=== PATIENT | male | born 1980 | race Caucasian/White ===

== ENCOUNTER 2016-05-14 16:02 | Emergency (ER) | payer OTHER ==
[~2016-05-14] VITALS: Ht 175.3 cm; Wt 136.1 kg
[~2016-05-14 16:02] MED LIST: CIPR500T19; FLAG500T
[2016-05-14] MEDS ORDERED: CLEO300C2 PO (16:56)
[2016-05-14] MEDS ORDERED: CLINDAMYCIN 150 MG CAP PO ONE (17:15)
[2016-05-14 18:04] VITALS: BP 141/91
== END 2016-05-14 18:10 | disposition home or self-care (01) ==
LOC: M ED 17:12
DX: K04.7 Periapical abscess without sinus (principal); Z91.013 Allergy to seafood

== ENCOUNTER 2016-09-11 12:37 | Emergency (ER) | payer OTHER ==
[~2016-09-11] VITALS: Ht 175.3 cm; Wt 186.4 kg
[~2016-09-11 12:37] MED LIST changes: +CLEO300C2 PO
[2016-09-11] MEDS ORDERED: ONDANSETRON 4MG/2ML VIAL (J2405) IV ONE (13:30)
[2016-09-11] MEDS ORDERED: NS 500 ML IV ONE (13:30)
[2016-09-11 14:01] LABS: BASO # 0.1 K/mm3 (0.0-0.2); BASO % 0.9 % (0.0-1.0); EOS # 0.4 K/mm3 (0.0-0.50); EOS % 6.2 % (0.0-3.0); LARGE UNSTAINED CELL # 0.1 K/mm3 (0.0-0.4); LARGE UNSTAINED CELL % 1.6 % (0.0-4.0); LYMPH # 1.6 K/mm3 (1.5-4.5); LYMPH % 21.3 % (24.0-44.0); MEAN CORPUSCULAR HEMOGLOBIN 28.6 pg (27.0-33.0); MEAN CORPUSCULAR HGB CONC 33.8 g/dl (32.0-36.5); MEAN CORPUSCULAR VOLUME 84.6 fl (80.0-96.0); MONO # 0.5 K/mm3 (0.0-0.8); MONO % 6.3 % (0.0-5.0); NEUTROPHILS # 4.6 K/mm3 (1.8-7.7); NEUTROPHILS % 63.6 % (36.0-66.0); PLATELET COUNT, AUTOMATED 227 k/mm3 (150-450); RED CELL DISTRIBUTION WIDTH 14.2 % (11.5-14.5); WHITE BLOOD COUNT 7.2 K/mm3 (4.0-10.0)
[2016-09-11 14:22] LABS: ALBUMIN 3.3 GM/DL (3.2-5.2); ALBUMIN/GLOBULIN RATIO 0.85 (1.00-1.93); ALKALINE PHOSPHATASE 64 U/L (45-117); ALT/SGPT 58 U/L (12-78); ANION GAP 9 MEQ/L (8-16); AST/SGOT 32 U/L (15-37); BILIRUBIN,DIRECT 0.2 MG/DL (0.0-0.2); BILIRUBIN,TOTAL 0.9 MG/DL (0.2-1.0); BLOOD UREA NITROGEN 15 MG/DL (7-18); CALCIUM LEVEL 8.8 MG/DL (8.5-10.1); CARBON DIOXIDE LEVEL 26 MEQ/L (21-32); CHLORIDE LEVEL 105 MEQ/L (98-107); GLOMERULAR FILTRATION RATE > 60.0 (>60); GLUCOSE, FASTING 97 MG/DL (70-105); POTASSIUM SERUM 3.9 MEQ/L (3.5-5.1); SODIUM LEVEL 140 MEQ/L (136-145); TOTAL PROTEIN 7.2 GM/DL (6.4-8.2)
[2016-09-11] MEDS ORDERED: OMEP40CA2 PO (15:33)
[2016-09-11] MEDS ORDERED: ZOFR4TAB3 PO (15:34)
[2016-09-11 15:59] VITALS: BP 145/91
== END 2016-09-11 16:00 | disposition home or self-care (01) ==
LOC: M ED 12:37
DX: K21.9 Gastro-esophageal reflux disease without esophagitis (principal); Z90.49 Acquired absence of other specified parts of digestive tract
CPT/HCPCS: 80048; 80076; 81001; 83690; 85025; 87086; 96361; 96374; 99283; J2405

== ENCOUNTER 2017-11-07 07:24 | Inpatient (IN) | payer BC, OTHER, SELFPAY ==
[2017-11-07 08:42] LABS: BASO % 0.3 % (0.0-1.0); EOS # 0.4 10^3/uL (0.0-0.50); EOS % 2.8 % (0.0-3.0); HEMATOCRIT 39.7 % (42.0-52.0); HEMOGLOBIN 13.1 g/dl (13.5-17.5); IMMATURE GRANULOCYTE % 0.6 % (0-3.0); LYMPH # 2.1 10^3/uL (1.5-4.5); LYMPH % 16.1 % (24.0-44.0); MEAN CORPUSCULAR HEMOGLOBIN 27.8 pg (27.0-33.0); MEAN CORPUSCULAR VOLUME 84.3 fl (80.0-96.0); MONO # 1.2 10^3/uL (0.0-0.8); MONO % 9.1 % (0.0-5.0); NEUTROPHILS # 9.1 10^3/uL (1.8-7.7); NEUTROPHILS % 71.1 % (36.0-66.0); PLATELET COUNT, AUTOMATED 263 10^3/uL (150-450); RED BLOOD COUNT 4.71 10^6/uL (4.30-6.10); RED CELL DISTRIBUTION WIDTH 14.3 % (11.5-14.5); WHITE BLOOD COUNT 12.8 10^3/uL (4.0-10.0)
[2017-11-07 09:14] LABS: ANION GAP 8 MEQ/L (8-16); BLOOD UREA NITROGEN 19 MG/DL (7-18); CALCIUM LEVEL 8.8 MG/DL (8.5-10.1); CARBON DIOXIDE LEVEL 27 MEQ/L (21-32); CHLORIDE LEVEL 103 MEQ/L (98-107); CREATININE FOR GFR 1.12 MG/DL (0.70-1.30); GLOMERULAR FILTRATION RATE > 60.0 (>60); GLUCOSE, FASTING 118 MG/DL (70-100); POTASSIUM SERUM 4.1 MEQ/L (3.5-5.1); SODIUM LEVEL 138 MEQ/L (136-145)
[2017-11-07] MEDS: ceFAZolin SOD 1 GM in D5W MINI-BAG PLUS 50 ML IV (09:35)
[2017-11-07] MEDS ORDERED: ACETAMINOPHEN TAB 650MG DOSE (2X325MG) PO (11:00)
[2017-11-07] MEDS: VANCOMYCIN HCL 750 MG, VIAL MATE ADAPTER 1 EACH in D5W 250 ML IV (11:15)
[2017-11-07 11:28] LABS: ALBUMIN 3.6 GM/DL (3.2-5.2); ALBUMIN/GLOBULIN RATIO 0.82 (1.00-1.93); ALKALINE PHOSPHATASE 75 U/L (45-117); ALT/SGPT 27 U/L (12-78); AST/SGOT 14 U/L (7-37); BILIRUBIN,DIRECT 0.3 MG/DL (0.0-0.2); BILIRUBIN,TOTAL 1.1 MG/DL (0.2-1.0)
[2017-11-07] MEDS: PIPERACILLIN/TAZOBACTAM SOD 3.375 GM in D5W MINI-BAG PLUS 50 ML IV ×3 (11:49→23:06)
[2017-11-07] MEDS: VANCOMYCIN HCL 1,000 MG, VIAL MATE ADAPTER 1 EACH in D5W 250 ML IV ×3 (13:04→20:12)
[2017-11-07] MEDS: HEPARIN SOD (PORCINE) 5000 UNITS/ML VIAL SC ×2 (15:04→21:11)
[2017-11-07 16:54] LABS: LACTIC ACID SEPSIS PROTOCOL 1.3 MMOL/L (0.4-2.0)
[2017-11-08] MEDS: VANCOMYCIN HCL 1,000 MG, VIAL MATE ADAPTER 1 EACH in D5W 250 ML IV ×3 (04:42→22:04)
[2017-11-08] MEDS: HEPARIN SOD (PORCINE) 5000 UNITS/ML VIAL SC ×3 (05:55→22:04)
[2017-11-08 07:18] LABS: HEMATOCRIT 37.7 % (42.0-52.0); HEMOGLOBIN 12.3 g/dl (13.5-17.5); MEAN CORPUSCULAR HEMOGLOBIN 28.3 pg (27.0-33.0); MEAN CORPUSCULAR HGB CONC 32.6 g/dl (32.0-36.5); MEAN CORPUSCULAR VOLUME 86.9 fl (80.0-96.0); PLATELET COUNT, AUTOMATED 239 10^3/uL (150-450); RED BLOOD COUNT 4.34 10^6/uL (4.30-6.10); RED CELL DISTRIBUTION WIDTH 14.2 % (11.5-14.5); WHITE BLOOD COUNT 9.1 10^3/uL (4.0-10.0)
[2017-11-08 07:57] LABS: BLOOD UREA NITROGEN 14 MG/DL (7-18); CARBON DIOXIDE LEVEL 24 MEQ/L (21-32); CHLORIDE LEVEL 110 MEQ/L (98-107); CREATININE FOR GFR 0.81 MG/DL (0.70-1.30); GLOMERULAR FILTRATION RATE > 60.0 (>60); GLUCOSE, FASTING 91 MG/DL (70-100); POTASSIUM SERUM 3.7 MEQ/L (3.5-5.1); SODIUM LEVEL 143 MEQ/L (136-145)
[2017-11-08 07:58] LABS: ANION GAP 9 MEQ/L (8-16); CALCIUM LEVEL 7.8 MG/DL (8.5-10.1)
[2017-11-08] MEDS: PIPERACILLIN/TAZOBACTAM SOD 3.375 GM in D5W MINI-BAG PLUS 50 ML IV ×3 (09:18→18:19)
[2017-11-08 12:58] LABS: VANCOMYCIN LEVEL TROUGH 12.8 UG/ML (10.0-20.0)
[2017-11-09] MEDS: PIPERACILLIN/TAZOBACTAM SOD 3.375 GM in D5W MINI-BAG PLUS 50 ML IV ×3 (00:39→12:38)
[2017-11-09] MEDS: VANCOMYCIN HCL 1,000 MG, VIAL MATE ADAPTER 1 EACH in D5W 250 ML IV ×3 (04:34→20:13)
[2017-11-09] MEDS: HEPARIN SOD (PORCINE) 5000 UNITS/ML VIAL SC ×3 (06:02→20:13)
[2017-11-09 07:20] LABS: HEMATOCRIT 37.2 % (42.0-52.0); HEMOGLOBIN 12.2 g/dl (13.5-17.5); MEAN CORPUSCULAR HEMOGLOBIN 28.2 pg (27.0-33.0); MEAN CORPUSCULAR HGB CONC 32.8 g/dl (32.0-36.5); MEAN CORPUSCULAR VOLUME 85.9 fl (80.0-96.0); PLATELET COUNT, AUTOMATED 236 10^3/uL (150-450); RED BLOOD COUNT 4.33 10^6/uL (4.30-6.10); WHITE BLOOD COUNT 7.5 10^3/uL (4.0-10.0)
[2017-11-09 07:44] LABS: ANION GAP 6 MEQ/L (8-16); BLOOD UREA NITROGEN 13 MG/DL (7-18); C REACTIVE PROTEIN QUANTITATIV 8.57 MG/DL (0.00-0.30); CALCIUM LEVEL 8.7 MG/DL (8.5-10.1); CARBON DIOXIDE LEVEL 28 MEQ/L (21-32); CHLORIDE LEVEL 106 MEQ/L (98-107); CREATININE FOR GFR 1.02 MG/DL (0.70-1.30); GLOMERULAR FILTRATION RATE > 60.0 (>60); GLUCOSE, FASTING 108 MG/DL (70-100); POTASSIUM SERUM 3.9 MEQ/L (3.5-5.1); SODIUM LEVEL 140 MEQ/L (136-145)
[2017-11-09] MEDS: INFLUENZA QUADRIVALENT PF VACCINE 0.5ML SYRINGE (90686) IM (09:00)
[2017-11-09 12:36] LABS: VANCOMYCIN LEVEL TROUGH 13.6 UG/ML (10.0-20.0)
[2017-11-10] MEDS: VANCOMYCIN HCL 1,000 MG, VIAL MATE ADAPTER 1 EACH in D5W 250 ML IV ×2 (05:08→13:00)
[2017-11-10] MEDS: HEPARIN SOD (PORCINE) 5000 UNITS/ML VIAL SC (05:08)
[2017-11-10 06:59] LABS: HEMATOCRIT 38.3 % (42.0-52.0); HEMOGLOBIN 12.5 g/dl (13.5-17.5); MEAN CORPUSCULAR HEMOGLOBIN 28.2 pg (27.0-33.0); MEAN CORPUSCULAR HGB CONC 32.6 g/dl (32.0-36.5); MEAN CORPUSCULAR VOLUME 86.5 fl (80.0-96.0); PLATELET COUNT, AUTOMATED 263 10^3/uL (150-450); RED BLOOD COUNT 4.43 10^6/uL (4.30-6.10); WHITE BLOOD COUNT 7.9 10^3/uL (4.0-10.0)
[2017-11-10 07:12] LABS: ANION GAP 9 MEQ/L (8-16); BLOOD UREA NITROGEN 15 MG/DL (7-18); C REACTIVE PROTEIN QUANTITATIV 5.54 MG/DL (0.00-0.30); CALCIUM LEVEL 8.7 MG/DL (8.5-10.1); CARBON DIOXIDE LEVEL 26 MEQ/L (21-32); CHLORIDE LEVEL 106 MEQ/L (98-107); CREATININE FOR GFR 1.07 MG/DL (0.70-1.30); GLOMERULAR FILTRATION RATE > 60.0 (>60); GLUCOSE, FASTING 107 MG/DL (70-100); POTASSIUM SERUM 4.3 MEQ/L (3.5-5.1); SODIUM LEVEL 141 MEQ/L (136-145)
== END 2017-11-10 12:35 | disposition home or self-care (01) | DRG 383 ==
LOC: M ED 07:24 → M ED INP 10:26 → M MS5PR 12:40
DX: L03.115 Cellulitis of right lower limb (principal); Z68.44 Body mass index [BMI] 60.0-69.9, adult; E66.01 Morbid (severe) obesity due to excess calories; B95.62 Methicillin resistant Staphylococcus aureus infection as the cause of diseases classified elsewhere

== ENCOUNTER 2018-01-03 23:12 | Inpatient (IN) | payer BC ==
[2018-01-03] MEDS: ONDANSETRON 4MG/2ML VIAL (J2405) IV (23:45)
[2018-01-03] MEDS: NS 1,000 ML IV (23:45)
[2018-01-04 00:13] LABS: BEDSIDE GLUCOSE 139 MG/DL (70-105)
[2018-01-04 01:03] LABS: VENOUS BASE EXCESS -2.6 (-2.0-2.0); VENOUS HCO3 20.4 MEQ/L (23.0-27.0); VENOUS O2 SATURATION 93.9 % (60.0-80.0); VENOUS PARTIAL PRESSURE CO2 30.3 mmHg (38.0-50.0); VENOUS PH 7.445 UNITS (7.330-7.430); VENOUS STANDARD HCO3 22.2 MEQ/L; VENOUS TOTAL CO2 21.3 MEQ/L (24.0-28.0)
[2018-01-04 01:20] LABS: ACETONE/KETONE 18.64 MG/DL (<2.81); ALBUMIN 2.8 GM/DL (3.2-5.2); ALBUMIN/GLOBULIN RATIO 0.62 (1.00-1.93); ALKALINE PHOSPHATASE 59 U/L (45-117); ALT/SGPT 26 U/L (12-78); ANION GAP 12 MEQ/L (8-16); AST/SGOT 21 U/L (7-37); BILIRUBIN,DIRECT 0.5 MG/DL (0.0-0.2); BILIRUBIN,TOTAL 2.1 MG/DL (0.2-1.0); BLOOD UREA NITROGEN 20 MG/DL (7-18); CALCIUM LEVEL 7.8 MG/DL (8.5-10.1); CARBON DIOXIDE LEVEL 22 MEQ/L (21-32); CHLORIDE LEVEL 99 MEQ/L (98-107); CK-MB VALUE MASS < 1.0 NG/ML (<3.6); CPK CREATINE PHOSPHOKINASE 215 U/L (39-308); CREATININE FOR GFR 2.02 MG/DL (0.70-1.30); ESTIMATED AVERAGE GLUCOSE 123 MG/DL (60-110); GLOMERULAR FILTRATION RATE 39.8 (>60); GLUCOSE, FASTING 129 MG/DL (70-100); HEMOGLOBIN A1c 5.9 %; LIPASE 106 U/L (73-393); MAGNESIUM LEVEL 1.6 MG/DL (1.8-2.4); MB/CK RELATIVE INDEX 0.47 (< OR =4); PHOSPHORUS LEVEL 1.6 MG/DL (2.5-4.9); POTASSIUM SERUM 3.5 MEQ/L (3.5-5.1); SODIUM LEVEL 133 MEQ/L (136-145); TOTAL PROTEIN 7.3 GM/DL (6.4-8.2); TROPONIN I < 0.02 NG/ML (< 0.10)
[2018-01-04 01:20] LABS: LACTIC ACID SEPSIS PROTOCOL 1.4 MMOL/L (0.4-2.0)
[2018-01-04 01:31] LABS: INR 1.25; PROTHROMBIN TIME 15.9 SECONDS (12.1-14.4)
[2018-01-04 01:32] LABS: PARTIAL THROMBOPLASTIN TIME 28.8 SECONDS (25.4-37.6)
[2018-01-04 01:41] LABS: BASO % 0.2 % (0.0-1.0); HEMATOCRIT 37.8 % (42.0-52.0); HEMOGLOBIN 12.4 g/dl (13.5-17.5); IMMATURE GRANULOCYTE % 0.5 % (0-3.0); LYMPH # 0.7 10^3/uL (1.5-4.5); LYMPH % 5.1 % (24.0-44.0); MEAN CORPUSCULAR HEMOGLOBIN 27.9 pg (27.0-33.0); MEAN CORPUSCULAR HGB CONC 32.8 g/dl (32.0-36.5); MEAN CORPUSCULAR VOLUME 84.9 fl (80.0-96.0); MONO # 1.5 10^3/uL (0.0-0.8); MONO % 10.6 % (0.0-5.0); NEUTROPHILS # 11.7 10^3/uL (1.8-7.7); NEUTROPHILS % 83.6 % (36.0-66.0); PLATELET COUNT, AUTOMATED 165 10^3/uL (150-450); RED BLOOD COUNT 4.45 10^6/uL (4.30-6.10); RED CELL DISTRIBUTION WIDTH 14.1 % (11.5-14.5)
[2018-01-04 01:52] LABS: INFLUENZA A AMPLIFICATION NEGATIVE (NEGATIVE); INFLUENZA B AMPLIFICATION NEGATIVE (NEGATIVE)
[2018-01-04 01:55] LABS: OSMOLALITY SERUM 281 MOSM/KG (275-295)
[2018-01-04] MEDS: ACETAMINOPHEN 325 MG TAB PO (01:58)
[2018-01-04] MEDS ORDERED: BISACODYL 10 MG SUPP PR (02:30)
[2018-01-04] MEDS ORDERED: BISACODYL 5 MG TAB PO (02:30)
[2018-01-04] MEDS: PIPERACILLIN/TAZOBACTAM SOD 3.375 GM in D5W MINI-BAG PLUS 50 ML IV ×3 (02:48→17:34)
[2018-01-04] MEDS: NS 1,000 ML IV ×4 (02:49→17:35)
[2018-01-04 04:22] LABS: KETONE, URINE AUTO RFX 1+ mg/dL (NEGATIVE); LEUKOCYTE ESTERASE UR AUTO RFX 1+ (NEGATIVE); MUCUS, URINE RFX SMALL (NEGATIVE); NITRITE, URINE AUTO RFX POSITIVE (NEGATIVE); RBC, URINE AUTO RFX 11 /HPF (0-3); SPECIFIC GRAVITY UR AUTO RFX 1.016 (1.002-1.035); SQUAM EPITHELIAL CELL UR AURFX 1 /HPF (0-6); WBC, URINE AUTO RFX 69 /HPF (0-3)
[2018-01-04] MEDS: VANCOMYCIN HCL 1,000 MG, VIAL MATE ADAPTER 1 EACH in D5W 250 ML IV ×4 (04:25→16:16)
[2018-01-04 05:06] LABS: AMPHETAMINES LEVEL URINE NEGATIVE (NEGATIVE); BARBITURATES URINE NEGATIVE (NEGATIVE); BENZODIAZEPINES URINE NEGATIVE (NEGATIVE); CANNABINOIDS URINE NEGATIVE (NEGATIVE); COCAINE METABOLITE URINE NEGATIVE (NEGATIVE); METHADONE URINE NEGATIVE (NEGATIVE); OPIATES URINE NEGATIVE (NEGATIVE); PHENCYCLIDINE URINE NEGATIVE (NEGATIVE)
[2018-01-04] MEDS: HEPARIN SOD (PORCINE) 5000 UNITS/ML VIAL SC ×3 (06:36→22:42)
[2018-01-04] MEDS: ONDANSETRON 4MG/2ML VIAL (J2405) IV (08:04)
[2018-01-04] MEDS: ACETAMINOPHEN TAB 650MG DOSE (2X325MG) PO ×2 (08:04→22:42)
[2018-01-04] MEDS: IBUPROFEN 600 MG TAB PO (12:06)
[2018-01-05] MEDS: VANCOMYCIN HCL 1,000 MG, VIAL MATE ADAPTER 1 EACH in D5W 250 ML IV ×4 (00:56→23:37)
[2018-01-05] MEDS: PIPERACILLIN/TAZOBACTAM SOD 3.375 GM in D5W MINI-BAG PLUS 50 ML IV ×3 (02:30→17:58)
[2018-01-05] MEDS: NS 1,000 ML IV ×4 (02:31→16:36)
[2018-01-05] MEDS: ACETAMINOPHEN TAB 650MG DOSE (2X325MG) PO (06:34)
[2018-01-05] MEDS: HEPARIN SOD (PORCINE) 5000 UNITS/ML VIAL SC ×3 (06:34→20:52)
[2018-01-05 07:21] LABS: HEMATOCRIT 34.3 % (42.0-52.0); HEMOGLOBIN 11.5 g/dl (13.5-17.5); MEAN CORPUSCULAR HEMOGLOBIN 27.6 pg (27.0-33.0); MEAN CORPUSCULAR HGB CONC 33.5 g/dl (32.0-36.5); MEAN CORPUSCULAR VOLUME 82.5 fl (80.0-96.0); PLATELET COUNT, AUTOMATED 156 10^3/uL (150-450); RED BLOOD COUNT 4.16 10^6/uL (4.30-6.10); RED CELL DISTRIBUTION WIDTH 14.5 % (11.5-14.5); WHITE BLOOD COUNT 10.4 10^3/uL (4.0-10.0)
[2018-01-05 07:46] LABS: ANION GAP 9 MEQ/L (8-16); BLOOD UREA NITROGEN 18 MG/DL (7-18); CALCIUM LEVEL 7.6 MG/DL (8.5-10.1); CARBON DIOXIDE LEVEL 24 MEQ/L (21-32); CHLORIDE LEVEL 104 MEQ/L (98-107); CREATININE FOR GFR 1.74 MG/DL (0.70-1.30); GLOMERULAR FILTRATION RATE 47.2 (>60); GLUCOSE, FASTING 111 MG/DL (70-100); POTASSIUM SERUM 3.9 MEQ/L (3.5-5.1); SODIUM LEVEL 137 MEQ/L (136-145); VANCOMYCIN LEVEL TROUGH 16.4 UG/ML (10.0-20.0)
[2018-01-05] MEDS ORDERED: LOPERAMIDE 2 MG CAP PO (10:45)
[2018-01-05] MEDS: LACTOBACILLUS ACIDOPHILUS CAP (BACID) PO ×2 (12:46→17:58)
[2018-01-05] MEDS: MAG SULF 1GM/100ML (MAG RUN) 1 GM in APPROPRIATE DILUENT 1 EA IV (13:50)
[2018-01-05] MEDS: ONDANSETRON 4MG/2ML VIAL (J2405) IV (14:30)
[2018-01-05] MEDS: K-PHOS ORIGINAL (POT.ACID PHOSPHATE) 500MG TAB PO ×2 (14:30→20:52)
[2018-01-06] MEDS: PIPERACILLIN/TAZOBACTAM SOD 3.375 GM in D5W MINI-BAG PLUS 50 ML IV ×2 (01:46→11:03)
[2018-01-06] MEDS: NS 1,000 ML IV ×2 (05:09→10:16)
[2018-01-06] MEDS: HEPARIN SOD (PORCINE) 5000 UNITS/ML VIAL SC ×3 (05:09→21:55)
[2018-01-06 06:48] LABS: HEMATOCRIT 32.6 % (42.0-52.0); HEMOGLOBIN 10.6 g/dl (13.5-17.5); MEAN CORPUSCULAR HEMOGLOBIN 27.9 pg (27.0-33.0); MEAN CORPUSCULAR HGB CONC 32.5 g/dl (32.0-36.5); MEAN CORPUSCULAR VOLUME 85.8 fl (80.0-96.0); PLATELET COUNT, AUTOMATED 172 10^3/uL (150-450); RED CELL DISTRIBUTION WIDTH 14.9 % (11.5-14.5); WHITE BLOOD COUNT 8.9 10^3/uL (4.0-10.0)
[2018-01-06 07:08] LABS: ANION GAP 6 MEQ/L (8-16); BLOOD UREA NITROGEN 14 MG/DL (7-18); CALCIUM LEVEL 7.9 MG/DL (8.5-10.1); CARBON DIOXIDE LEVEL 27 MEQ/L (21-32); CHLORIDE LEVEL 105 MEQ/L (98-107); CREATININE FOR GFR 1.62 MG/DL (0.70-1.30); GLOMERULAR FILTRATION RATE 51.3 (>60); GLUCOSE, FASTING 118 MG/DL (70-100); SODIUM LEVEL 138 MEQ/L (136-145)
[2018-01-06] MEDS: LACTOBACILLUS ACIDOPHILUS CAP (BACID) PO ×2 (08:00→18:41)
[2018-01-06] MEDS: VANCOMYCIN HCL 1,000 MG, VIAL MATE ADAPTER 1 EACH in D5W 250 ML IV ×2 (08:16→16:48)
[2018-01-06] MEDS: K-PHOS ORIGINAL (POT.ACID PHOSPHATE) 500MG TAB PO (09:00)
[2018-01-06 15:24] LABS: VANCOMYCIN LEVEL TROUGH 16.6 UG/ML (10.0-20.0)
[2018-01-06] MEDS ORDERED: cefTRIAXone SOD 1 GM VIAL (J0696) IM (18:00)
[2018-01-06] MEDS: CEFDINIR 300 MG CAP (OMNICEF) PO (20:03)
[2018-01-07] MEDS: HEPARIN SOD (PORCINE) 5000 UNITS/ML VIAL SC (05:25)
[2018-01-07 06:37] LABS: HEMOGLOBIN 11.2 g/dl (13.5-17.5); MEAN CORPUSCULAR HEMOGLOBIN 27.9 pg (27.0-33.0); MEAN CORPUSCULAR HGB CONC 32.9 g/dl (32.0-36.5); MEAN CORPUSCULAR VOLUME 84.6 fl (80.0-96.0); PLATELET COUNT, AUTOMATED 230 10^3/uL (150-450); RED BLOOD COUNT 4.02 10^6/uL (4.30-6.10); WHITE BLOOD COUNT 9.3 10^3/uL (4.0-10.0)
[2018-01-07 07:01] LABS: ANION GAP 7 MEQ/L (8-16); BLOOD UREA NITROGEN 10 MG/DL (7-18); CALCIUM LEVEL 7.8 MG/DL (8.5-10.1); CARBON DIOXIDE LEVEL 27 MEQ/L (21-32); CHLORIDE LEVEL 104 MEQ/L (98-107); CREATININE FOR GFR 1.52 MG/DL (0.70-1.30); GLOMERULAR FILTRATION RATE 55.2 (>60); GLUCOSE, FASTING 112 MG/DL (70-100); POTASSIUM SERUM 3.7 MEQ/L (3.5-5.1); SODIUM LEVEL 138 MEQ/L (136-145)
[2018-01-07] MEDS: CEFDINIR 300 MG CAP (OMNICEF) PO (08:27)
[2018-01-07] MEDS: LACTOBACILLUS ACIDOPHILUS CAP (BACID) PO (08:27)
== END 2018-01-07 13:19 | disposition home or self-care (01) | DRG 720 ==
LOC: M ED 23:12 → M MSPAV 01-05 16:22 → M ED INP 01-04 02:16 → M ICU 01-04 15:37
DX: A41.9 Sepsis, unspecified organism (principal); N17.9 Acute kidney failure, unspecified; N13.2 Hydronephrosis with renal and ureteral calculous obstruction; E66.9 Obesity, unspecified; B96.20 Unspecified Escherichia coli [E. coli] as the cause of diseases classified elsewhere; Z86.14 Personal history of Methicillin resistant Staphylococcus aureus infection; E86.0 Dehydration; R19.7 Diarrhea, unspecified; Z91.030 Bee allergy status; Z90.49 Acquired absence of other specified parts of digestive tract

== ENCOUNTER → 2018-05-09 | Outpatient (CLI) | payer BC ==
[~2018-05-09] MED LIST changes: +CEFD300CAP PO; +DOXY-350 PO; +OMEP40CA2 PO; +RISATAB3 PO; +ZOFR4TAB14 PO
[2018-05-09 14:25] LABS: ALBUMIN 3.7 GM/DL (3.2-5.2); ALT/SGPT 39 U/L (12-78); BLOOD UREA NITROGEN 13 MG/DL (7-18); CARBON DIOXIDE LEVEL 28 MEQ/L (21-32); CHLORIDE LEVEL 107 MEQ/L (98-107); CHOLESTEROL LEVEL 144 MG/DL (<200); CREATININE FOR GFR 1.19 MG/DL (0.70-1.30); FREE T4 1.05 NG/DL (0.76-1.46); GLOMERULAR FILTRATION RATE > 60.0 (>60); GLUCOSE, FASTING 94 MG/DL (70-100); HDL CHOLESTEROL 40 MG/DL (>40); LDL CHOLESTEROL 78 MG/DL (<100); NON-HDL-C 104 MG/DL; POTASSIUM SERUM 4.5 MEQ/L (3.5-5.1); SODIUM LEVEL 141 MEQ/L (136-145); TOTAL PROTEIN 7.2 GM/DL (6.4-8.2); TRIGLYCERIDES LEVEL 132 MG/DL (<150)
== END ==
LOC: M LAB 13:11
PROVIDERS: ATTEND Family Medicine
DX: E66.01 Morbid (severe) obesity due to excess calories (principal)

== ENCOUNTER 2019-04-19 15:42 | Emergency (ER) | payer BC, SELFPAY ==
[~2019-04-19] VITALS: Ht 175.3 cm; Wt 145.4 kg
[~2019-04-19 15:42] MED LIST changes: -OMEP40CA2 PO; +OMEP40CA97 PO
[2019-04-19 15:43] VITALS: BP 137/95
[2019-04-19] MEDS ORDERED: DOXY100C37 PO (16:08)
== END 2019-04-19 16:12 | disposition home or self-care (01) ==
LOC: M ED 15:42
DX: L03.116 Cellulitis of left lower limb (principal); Z86.14 Personal history of Methicillin resistant Staphylococcus aureus infection; Z79.899 Other long term (current) drug therapy; Z91.018 Allergy to other foods

== ENCOUNTER 2019-09-13 18:13 | Inpatient (IN) | payer BC ==
[~2019-09-13 18:13] MED LIST changes: +DOXY100C37 PO
[2019-09-13] MEDS ORDERED: LIDOCAINE 2% W/EPINEPHRINE 20ML VIAL **PRES FREE As Ordered ONE (20:31)
[2019-09-14] MEDS ORDERED: VANCOMYCIN 1000MG/20ML VIAL As Ordered ONE (06:10)
--- NOTE | 2019-10-14 11:08 | CR ---
DATE: 09/14/2019 REASON FOR CONSULTATION: Left thigh abscess. 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 He thought that he had had some chaffing on his inner thigh from doing a lot of yard work lately; however, when he started to have increased swelling in the thigh and then it opened and drained spontaneously at home, he was concerned for cellulitis and he came into the hospital to have it evaluated. In the ER, his labs were normal; but he did have active drainage from the left thigh. The ER did an incision and drainage (I&D) of it as well and just showed it had some more serosanguineous drainage and they did not find any large purulent fluid collections. He was admitted to the hospitalist service for intravenous (IV) antibiotics and then I was called to evaluate. This morning, he denies any pain. No nausea or vomiting. No fevers. He has had these incisions before where the emergency room (ER) drained just clear fluid. He feels that the slightly has slightly improved from admission, but otherwise feels the same as when he came in. Labs this morning are still good. His white count was only 9.7 on admission and it is down to 8.05 this morning and again, no fevers and tolerating diet. PAST MEDICAL HISTORY: MRSA infections, obesity. PAST SURGICAL HISTORY: Sheron suarez. ALLERGIES: SHELL FISH. MEDICATIONS: Please see med rec. SOCIAL HISTORY: Denies drug, alcohol, or tobacco abuse. FAMILY HISTORY: Non-contributory. REVIEW OF SYSTEMS: Pertinent positives and negatives as stated in the HPI. PHYSICAL EXAMINATION: GENERAL: Alert and oriented (A&0) x3, in no acute distress. VITAL SIGNS: Stable. Afebrile. HEENT: Pupils equal, round, reactive to light and accommodation. HEART: S1, S2. Regular rate and rhythm. LUNGS: Clear to auscultation bilaterally. ABDOMEN: Soft, nondistended, obese, and nontender. EXTREMITIES: On the left proximal thigh there is a 5 x 8 cm area of erythema and induration with no fluctuance. There is an opening in the upper half of this area and about a 1 cm opening in the lower pole of this area both are just draining serosanguineous fluid. I was able to use a cotton tipped applicator and probe the wound myself and did not reveal any pockets of fluid that were missed during the I&D. His dressing was then changed. LABORATORY DATA: Again, white count on admission 9.7 down to 8.05 this morning, hemoglobin 13.1, platelets 261,000. ASSESSMENT AND PLAN: The patient is a 39-year-old male with history of methicillin-resistant Staphylococcus aureus (MRSA) infections who now presents with likely repeat MRSA infection to the left thigh. He was admitted with the diagnosis of sepsis; however, I find that hard to believe with normal labs and such a mild infection. I do believe he has just a regular mild MRSA infection of the left groin. I discussed the findings with the hospitalist this morning, Dr. Jaquez. Recommended that he be discharged home with just regular dressing changes and possibly Bactrim for 7-10 days. He understands and will evaluate him this morning and plan for discharge either today or tomorrow. Either way, there is no indication for any further surgical incisions at that point. SOTO
== END 2019-09-14 10:45 | disposition home or self-care (01) | DRG 383 ==
LOC: M ED 18:13 → M MSPAV 23:55
PROVIDERS: ADMIT Internal Medicine; ATTEND Internal Medicine
DX: L03.116 Cellulitis of left lower limb (principal); E66.9 Obesity, unspecified; Z91.013 Allergy to seafood

== ENCOUNTER → 2020-03-04 | Outpatient (CLI) | payer SELFPAY | LOC: M LABSMTC 14:03 | PROVIDERS: ATTEND Pediatrics | DX: Z20.822 Contact with and (suspected) exposure to COVID-19 (principal) ==

== ENCOUNTER 2020-03-28 15:56 | Emergency (ER) | payer BC ==
[~2020-03-28] VITALS: Ht 175.3 cm; Wt 205.0 kg
--- OUTSIDE RECORDS SUMMARY | 2020-03-28 16:06 | CCD ---
Author Author [facility] Organization [facility] Address Unknown Phone Unavailable Support Name Relationship Address Phone STAT Next Of Kin [address] [place] [address] UE Next Of Kin Unknown Unavailable CONVERGYS Next Of Kin [address] [place] [address] [employer] [address] [place] LAUREEN BOB Next Of Kin [address] [place] [address] LAUREEN BOB [address] [place] [id number] [phone] Re-disclosure Warning The records that you are about to access may contain information from federally-assisted alcohol or drug abuse programs. If such information is present, then the following federally mandated warning applies: This information has been disclosed to you from records protected by federal confidentiality rules (42 CFR part 2). The federal rules prohibit you from making any further disclosure of this information unless further disclosure is expressly permitted by the written consent of the person to whom it pertains or as otherwise permitted by 42 CFR part 2. A general authorization for the release of medical or other information is NOT sufficient for this purpose. The Federal rules restrict any use of the information to criminally investigate or prosecute any alcohol or drug abuse patient.The records that you are about to access may contain highly sensitive health information, the redisclosure of which is protected by Article 27-F of the [facility] Public Health law. If you continue you may have access to information: Regarding HIV / AIDS; Provided by facilities licensed or operated by the [facility] Office of Mental Health; or Provided by the [facility] Office for People With Developmental Disabilities. If such information is present, then the following [facility] mandated warning applies: This information has been disclosed to you from confidential records which are protected by state law. State law prohibits you from making any further disclosure of this information without the specific written consent of the person to whom it pertains, or as otherwise permitted by law. Any unauthorized further disclosure in violation of state law may result in a fine or senior care sentence or both. A general authorization for the release of medical or other information is NOT sufficient authorization for further disc losure. Family History Family Member Name Family Member Gender Family Member Status Date o f Status Description Data Source(s) Unknown Unknown Problem MEDENT ([facility]) Encounters Encounter Providers Location Date Indications Data Source(s ) [address] [address] 04/21/2019 12:00:00 AM EDT eCW1 ([facility]) Insurance Providers Payer name Policy type / Coverage type Policy ID Covered constitution party ID Covered constitution party's relationship to leroy Policy Leroy Plan Information [employer] [place] 306/806 [id number] SP [id number] SELF PAY ONLY [id number] SP [id number] [employer] BCBS B [id number] S [id number] [employer] BC-BS PPO 306 [id number] SP [id number] ANSI-Not a Secondary Insurance [id number] ANSI-Commercial [id number] ANSI-Commercial [id number] ANSI-Commercial [id number] ANSI-Commercial [id number] ANSI-Commercial [id number] ANSI-Commercial [id number] ANSI-Commercial [id number] [employer] [place] 306/806 [id number] SP [id number] [employer] [id number] SP [id number] [employer] Commercial [id number] Self [id number] SELF PAY UNAVAILABLE UNAVAILA BLE [employer] Commercial Self Results ID Date Data Source [id number] 03/04/2020 12:00:00 AM EST [facility] Name Value Range Interpretation Code Description Data Jessica rce(s) Supporting Document(s) SARS-CoV-2 (COVID-19) RNA [Presence] in Respiratory specimen by PALOMA with probe detection Not Detected [facility] This lab was ordered by [facility] and reported by [employer] Procedure
[2020-03-28] MEDS ORDERED: SULF1TAB93 (16:07)
--- OUTSIDE RECORDS SUMMARY | 2020-03-28 16:25 | CCD ---
Author Author [facility] Organization [facility] Address Unknown Phone Unavailable Support Name Relationship Address Phone STAT Next Of Kin [address] [place] [address] UE Next Of Kin Unknown Unavailable CONVERGYS Next Of Kin [address] [place] [address] [employer] [place] [address] [place] LAUREEN BOB Next Of Kin [address] [place] [address] LAUREEN BOB ECON [address] [place] [id number] [phone] Re-disclosure Warning The records that you are [...] is protected by Article 27-F of the [facility] Public Health law. If you continue you may have access to information: Regarding HIV / AIDS; Provided by facilities licensed or operated by the [facility] Office of Mental Health; or Provided by the [facility] Office for People With Developmental Disabilities. If such information is present, then the following [facility] mandated warning applies: This information has been [...] law may result in a fine or halfway sentence or both. A general authorization for the release of medical or other information is NOT sufficient authorization for further disc losure. Family History Family Member Name Family Member Gender Family Member Status Date o f Status Description Data Source(s) Unknown Unknown Problem MEDENT ([facility]) Encounters Encounter Providers Location Date Indications Data Source(s ) [address] [address] 04/21/2019 12:00:00 AM EDT eCW1 ([facility]) Insurance Providers Payer name Policy type / Coverage type Policy ID Covered constitution party ID Covered constitution party's relationship to leroy Policy Leroy Plan Information [employer] [place] 306/806 [id number] SP [id number] SELF PAY ONLY [id number] SP [id number] [employer] BCBS B [id number] S YND [id number] [employer]-BS PPO 306 [id number] SP [id number] ANSI-Not a Secondary Insurance [id number] ANSI-Commercial [id number] ANSI-Commercial [id number] ANSI-Commercial [id number] ANSI-Commercial [id number] ANSI-Commercial [id number] ANSI-Commercial [id number] ANSI-Commercial [id number] [employer] [place] 306/806 [id number] SP [id number] C[employer]NA [employer] [id number] SP [id number] [employer] Commercial [id number] Self [id number] SELF PAY UNAVAILABLE UNAVAILA BLE [employer] Self Results ID Date Data Source [id number] 03/04/2020 12:00:00 AM EST [facility] Name Value Range Interpretation Code Description Data Jessica rce(s) Supporting Document(s) SARS-CoV-2 (COVID-19) RNA [Presence] in Respiratory specimen by PALOMA with probe detection Not Detected [facility] This lab was ordered by [facility] and reported by [employer] Procedure
[2020-03-28] MEDS ORDERED: LIDOCAINE 1% MDV 20ML VIAL SC ONE (16:30)
[2020-03-28] MEDS ORDERED: CLEO300C2 PO (16:58)
[2020-03-28] MEDS ORDERED: ACETAMINOPHEN TAB 650MG DOSE (2X325MG) PO ONE (17:00)
[2020-03-28] MEDS ORDERED: IBUPROFEN 600MG TAB PO ONE (17:00)
[2020-03-28 17:03] VITALS: BP 160/90
== END 2020-03-28 17:00 | disposition home or self-care (01) ==
LOC: M ED 15:56
DX: L03.012 Cellulitis of left finger (principal); Z91.013 Allergy to seafood

== ENCOUNTER 2020-08-10 23:19 | Emergency (ER) | payer BC ==
[~2020-08-10] VITALS: Ht 175.3 cm; Wt 202.4 kg
[2020-08-10 23:19] VITALS: BP 172/92
[~2020-08-10 23:19] MED LIST changes: +BACTDSTA; -DOXY100C37 PO; +DOXY1CAP62 PO; +OMEP40CA4 PO; -OMEP40CA97 PO
[2020-08-11] MEDS ORDERED: CLEO300C2 PO (04:22)
[2020-08-11] MEDS ORDERED: CLINDAMYCIN 150MG CAPSULE PO ONE (04:25)
== END 2020-08-11 05:16 | disposition home or self-care (01) ==
LOC: M ED 23:19
DX: L03.317 Cellulitis of buttock (principal); Z86.14 Personal history of Methicillin resistant Staphylococcus aureus infection; Z91.013 Allergy to seafood

== ENCOUNTER 2021-07-29 18:42 | Emergency (ER) | payer BC, SELFPAY ==
[~2021-07-29] VITALS: Ht 175.3 cm; Wt 197.2 kg
[~2021-07-29 18:42] MED LIST changes: +DOXY-443 PO; -DOXY1CAP62 PO
[2021-07-29] MEDS ORDERED: cefTRIAXone SOD 2 GM VIAL (J0696 PER 250MG) IM ONE (23:35)
[2021-07-29] MEDS ORDERED: LIDOCAINE 1% SDV 5ML VIAL DILUENT ONE (23:35)
[2021-07-29] MEDS ORDERED: DOXY-443 PO (23:35)
[2021-07-29 23:42] VITALS: BP 160/82
== END 2021-07-29 23:43 | disposition home or self-care (01) ==
LOC: M ED 18:42
DX: L02.31 Cutaneous abscess of buttock (principal); Z86.14 Personal history of Methicillin resistant Staphylococcus aureus infection; Z91.013 Allergy to seafood
CPT/HCPCS: 96372; 99283; J0696

== ENCOUNTER 2021-12-24 23:05 | Emergency (ER) | payer SELFPAY ==
[~2021-12-24] VITALS: Ht 175.3 cm; Wt 196.8 kg
[~2021-12-24 23:05] MED LIST changes: -DOXY-350 PO; +DOXY-444 PO
[2021-12-25] MEDS ORDERED: NS 1,000 ML IV ONE ×2 (00:05→00:40)
[2021-12-25] MEDS ORDERED: KETOROLAC 30 MG/ML 1ML VIAL IV ONE (00:05)
[2021-12-25 00:15] LABS: BASO % 0.4 % (0.0-1.0); EOS # 0.2 10^3/uL (0.0-0.5); EOS % 1.7 % (0.0-3.0); HEMATOCRIT 43.3 % (42.0-52.0); HEMOGLOBIN 13.7 g/dl (13.5-17.5); LYMPH # 1.2 10^3/uL (1.5-5.0); LYMPH % 11.3 % (24.0-44.0); MEAN CORPUSCULAR HEMOGLOBIN 28.2 pg (27.0-33.0); MEAN CORPUSCULAR HGB CONC 31.6 g/dl (32.0-36.5); MEAN CORPUSCULAR VOLUME 89.3 fl (80.0-96.0); MONO # 0.5 10^3/uL (0.0-0.8); MONO % 4.9 % (2.0-8.0); NEUTROPHILS # 8.5 10^3/uL (1.5-8.5); NEUTROPHILS % 81.2 % (36.0-66.0); PLATELET COUNT, AUTOMATED 248 10^3/uL (150-450); RED BLOOD COUNT 4.85 10^6/uL (4.30-6.10); WHITE BLOOD COUNT 10.5 10^3/uL (4.0-10.0)
[2021-12-25 00:27] LABS: ALBUMIN 3.7 GM/DL (3.2-5.2); BILIRUBIN,DIRECT 0.2 MG/DL (0.0-0.2); BILIRUBIN,TOTAL 0.9 MG/DL (0.2-1.0); CALCIUM LEVEL 8.5 MG/DL (8.5-10.1); CREATININE FOR GFR 1.51 MG/DL (0.70-1.30); GLOMERULAR FILTRATION RATE 54.5 (>60); POTASSIUM SERUM 4.1 MEQ/L (3.5-5.1); TOTAL PROTEIN 7.7 GM/DL (6.4-8.2)
[2021-12-25 00:46] LABS: RSV AMPLIFICATION NEGATIVE (NEGATIVE)
[2021-12-25 02:51] VITALS: BP 140/80
== END 2021-12-25 03:10 | disposition home or self-care (01) ==
LOC: M ED 23:05
DX: U07.1 COVID-19 (principal); N17.9 Acute kidney failure, unspecified; K76.0 Fatty (change of) liver, not elsewhere classified; N20.0 Calculus of kidney; K44.9 Diaphragmatic hernia without obstruction or gangrene; R11.2 Nausea with vomiting, unspecified; Z87.19 Personal history of other diseases of the digestive system; F17.200 Nicotine dependence, unspecified, uncomplicated; Z91.013 Allergy to seafood
CPT/HCPCS: 71046; 74176; 80048; 80076; 81000; 81015; 83690; 85025; 87088; 87186; 87631; 93005; 93041; 94760; 96361; 96374; 99285; J1885

== ENCOUNTER 2022-04-02 00:43 | Emergency (ER) | payer MEDICAID, SELFPAY ==
[~2022-04-02] VITALS: Ht 175.3 cm; Wt 203.0 kg
[~2022-04-02 00:43] MED LIST changes: +CIPR-249 PO
[2022-04-02] MEDS ORDERED: DALBAVANCIN 1,500 MG in D5W 250 ML IV ONE (02:35)
[2022-04-02 03:18] LABS: BASO # 0.1 10^3/uL (0.0-0.2); BASO % 0.5 % (0.0-1.0); EOS # 0.6 10^3/uL (0.0-0.5); EOS % 5.9 % (0.0-3.0); HEMATOCRIT 40.6 % (42.0-52.0); HEMOGLOBIN 12.7 g/dl (13.5-17.5); LYMPH # 2.3 10^3/uL (1.5-5.0); LYMPH % 20.8 % (24.0-44.0); MEAN CORPUSCULAR HEMOGLOBIN 27.4 pg (27.0-33.0); MEAN CORPUSCULAR HGB CONC 31.3 g/dl (32.0-36.5); MEAN CORPUSCULAR VOLUME 87.7 fl (80.0-96.0); MONO # 0.9 10^3/uL (0.0-0.8); MONO % 8.4 % (2.0-8.0); NEUTROPHILS # 6.9 10^3/uL (1.5-8.5); NEUTROPHILS % 63.9 % (36.0-66.0); PLATELET COUNT, AUTOMATED 257 10^3/uL (150-450); RED BLOOD COUNT 4.63 10^6/uL (4.30-6.10); WHITE BLOOD COUNT 10.9 10^3/uL (4.0-10.0)
[2022-04-02 03:40] LABS: BLOOD UREA NITROGEN 15 MG/DL (9-23); CALCIUM LEVEL 8.6 MG/DL (8.5-10.1); CARBON DIOXIDE LEVEL 29 MMOL/L (20-31); CHLORIDE LEVEL 104 MMOL/L (98-107); GLOMERULAR FILTRATION RATE > 60.0 (>60); GLUCOSE, FASTING 112 MG/DL (60-100); SODIUM LEVEL 140 MMOL/L (136-145)
[2022-04-02 04:17] VITALS: BP 163/78
== END 2022-04-02 04:19 | disposition home or self-care (01) ==
LOC: M ED 00:43
DX: L03.115 Cellulitis of right lower limb (principal); Z86.14 Personal history of Methicillin resistant Staphylococcus aureus infection; Z91.013 Allergy to seafood
CPT/HCPCS: 80048; 85025; 86140; 87040; 96374; 99283; J0875

== ENCOUNTER 2022-04-03 21:30 | Emergency (ER) | payer SELFPAY ==
[~2022-04-03] VITALS: Ht 175.3 cm; Wt 202.0 kg
[2022-04-04 01:56] VITALS: BP 130/81
[2022-04-04] MEDS ORDERED: LIDOCAINE 2% MDV 20ML VIAL SC ONE (06:35)
[2022-04-04 06:47] LABS: BASO # 0.1 10^3/uL (0.0-0.2); BASO % 0.6 % (0.0-1.0); EOS # 0.6 10^3/uL (0.0-0.5); EOS % 5.9 % (0.0-3.0); HEMOGLOBIN 12.7 g/dl (13.5-17.5); LYMPH # 2.1 10^3/uL (1.5-5.0); LYMPH % 21.8 % (24.0-44.0); MEAN CORPUSCULAR HEMOGLOBIN 27.3 pg (27.0-33.0); MEAN CORPUSCULAR VOLUME 88.2 fl (80.0-96.0); MONO # 0.7 10^3/uL (0.0-0.8); MONO % 7.7 % (2.0-8.0); NEUTROPHILS % 63.3 % (36.0-66.0); PLATELET COUNT, AUTOMATED 265 10^3/uL (150-450); RED BLOOD COUNT 4.65 10^6/uL (4.30-6.10); WHITE BLOOD COUNT 9.5 10^3/uL (4.0-10.0)
[2022-04-04] MEDS ORDERED: CLINDAMYCIN 150MG CAPSULE PO ONE (06:55)
[2022-04-04] MEDS ORDERED: CLIN150C17 PO (07:04)
== END 2022-04-04 07:23 | disposition home or self-care (01) ==
LOC: M ED 21:30
DX: L03.115 Cellulitis of right lower limb (principal); Z91.013 Allergy to seafood

== ENCOUNTER 2024-02-25 17:23 | Emergency (ER) | payer MEDICAID, SELFPAY ==
[~2024-02-25] VITALS: Ht 175.3 cm; Wt 206.9 kg
[~2024-02-25 17:23] MED LIST changes: +CLIN150C17 PO; +DOXY-440 PO; +DOXY-441 PO; -DOXY-443 PO; -DOXY-444 PO
[2024-02-25 19:06] LABS: BASO # 0.1 10^3/uL (0.0-0.2); BASO % 0.5 % (0.0-1.0); EOS # 0.5 10^3/uL (0.0-0.5); EOS % 4.2 % (0.0-3.0); HEMATOCRIT 38.8 % (42.0-52.0); HEMOGLOBIN 12.8 g/dl (13.5-17.5); LYMPH % 16.8 % (24.0-44.0); MEAN CORPUSCULAR HEMOGLOBIN 28.1 pg (27.0-33.0); MEAN CORPUSCULAR VOLUME 85.3 fl (80.0-96.0); MONO # 0.8 10^3/uL (0.0-0.8); MONO % 6.8 % (2.0-8.0); NEUTROPHILS # 8.2 10^3/uL (1.5-8.5); NEUTROPHILS % 71.3 % (36.0-66.0); PLATELET COUNT, AUTOMATED 239 10^3/uL (150-450); RED BLOOD COUNT 4.55 10^6/uL (4.30-6.10); WHITE BLOOD COUNT 11.6 10^3/uL (4.0-10.0)
[2024-02-25 19:11] LABS: ERYTHROCYTE SEDIMENTATION RATE 56 mm/hr (0-15)
[2024-02-25 19:25] LABS: BLOOD UREA NITROGEN 13 MG/DL (9-23); C REACTIVE PROTEIN QUANTITATIV 4.02 MG/DL (<1.0); CALCIUM LEVEL 8.5 MG/DL (8.5-10.1); CARBON DIOXIDE LEVEL 26 MMOL/L (20-31); CHLORIDE LEVEL 106 MMOL/L (98-107); CREATININE FOR GFR 0.97 MG/DL (0.70-1.30); GLOMERULAR FILTRATION RATE > 60.0 (>60); GLUCOSE, FASTING 100 MG/DL (60-100); POTASSIUM SERUM 4.5 MMOL/L (3.5-5.1); SODIUM LEVEL 139 MMOL/L (136-145)
[2024-02-25] MEDS: TRIMETHOPRIM/SULFAMETHOXAZOLE 160 MG in D5W 500 ML IV ONE (19:52)
[2024-02-25] MEDS ORDERED: BACT800T5 PO (20:44)
[2024-02-25 21:02] VITALS: BP 145/85; TEMP 96.4; O2SAT 96
== END 2024-02-25 21:06 | disposition home or self-care (01) ==
LOC: M ED 17:23
DX: L03.211 Cellulitis of face (principal); B95.62 Methicillin resistant Staphylococcus aureus infection as the cause of diseases classified elsewhere; Z91.013 Allergy to seafood; Z79.2 Long term (current) use of antibiotics
CPT/HCPCS: 80048; 83605; 84145; 85025; 85652; 86140; 87040; 96365; 99284; S0039

== ENCOUNTER 2024-03-20 13:19 | Emergency (ER) | payer SELFPAY ==
[~2024-03-20] VITALS: Ht 175.3 cm; Wt 203.3 kg
[~2024-03-20 13:19] MED LIST changes: +BACT800T5 PO
[2024-03-20 15:24] LABS: BASO % 0.5 % (0.0-1.0); EOS # 0.4 10^3/uL (0.0-0.5); EOS % 4.6 % (0.0-3.0); HEMATOCRIT 39.6 % (42.0-52.0); HEMOGLOBIN 12.8 g/dl (13.5-17.5); LYMPH # 1.6 10^3/uL (1.5-5.0); MEAN CORPUSCULAR HEMOGLOBIN 27.9 pg (27.0-33.0); MEAN CORPUSCULAR HGB CONC 32.3 g/dl (32.0-36.5); MEAN CORPUSCULAR VOLUME 86.5 fl (80.0-96.0); MONO # 0.7 10^3/uL (0.0-0.8); MONO % 8.5 % (2.0-8.0); NEUTROPHILS # 5.9 10^3/uL (1.5-8.5); NEUTROPHILS % 67.8 % (36.0-66.0); PLATELET COUNT, AUTOMATED 193 10^3/uL (150-450); RED BLOOD COUNT 4.58 10^6/uL (4.30-6.10); WHITE BLOOD COUNT 8.7 10^3/uL (4.0-10.0)
[2024-03-20 15:34] LABS: ERYTHROCYTE SEDIMENTATION RATE 47 mm/hr (0-15)
[2024-03-20 15:48] LABS: BLOOD UREA NITROGEN 14 MG/DL (9-23); C REACTIVE PROTEIN QUANTITATIV 4.08 MG/DL (<1.0); CALCIUM LEVEL 8.3 MG/DL (8.5-10.1); CARBON DIOXIDE LEVEL 24 MMOL/L (20-31); CHLORIDE LEVEL 108 MMOL/L (98-107); GLOMERULAR FILTRATION RATE > 60.0 (>60); GLUCOSE, FASTING 122 MG/DL (60-100); POTASSIUM SERUM 5.3 MMOL/L (3.5-5.1); SODIUM LEVEL 141 MMOL/L (136-145)
[2024-03-20] MEDS ORDERED: PIPERACILLIN/TAZOBACTAM SOD 3.375 GM in DEXTROSE 5% (D5W) ADV/MINI-BAG 50 ML IV ONE (17:05)
[2024-03-20] MEDS: DALBAVANCIN 1,500 MG in D5W 250 ML IV ONE (17:10)
[2024-03-20] MEDS ORDERED: ISOVUE-370 76% 100ML VIAL As Ordered ONE (17:14)
[2024-03-20 19:30] VITALS: BP 137/78; O2SAT 97
[2024-03-20 19:44] VITALS: TEMP 96.9
== END 2024-03-20 19:50 | disposition home or self-care (01) ==
LOC: M ED 13:19
DX: H05.011 Cellulitis of right orbit (principal); Z91.018 Allergy to other foods
CPT/HCPCS: 70487; 80048; 83605; 85025; 85652; 86140; 87040; 96365; 96366; 99284; J0875; Q9967